=== PATIENT | female | born 1975 | race Caucasian/White ===

== ENCOUNTER → 2024-08-31 09:16 | Outpatient (REF) | payer OTHER, SELFPAY | LOC: HWRAD 09:16 | PROVIDERS: ATTENDING PHYSICIAN Family Medicine | DX: T17.308A Unspecified foreign body in larynx causing other injury, initial encounter (principal) | CPT/HCPCS: 76536 ==

== ENCOUNTER 2025-03-13 10:47 | Emergency (ER) | payer OTHER, SELFPAY ==
[2025-03-13] VITALS (7 sets, daily range): BP systolic 114–143; BP diastolic 63–86; BMI 23.5
--- NOTE | 2025-03-13 11:09 | ED.GENMED ---
History of Present Illness
General
Chief Complaint: Post Operative Problem(s)
Source: patient
Exam Limitations: none
Time Seen by Provider: 03/13/25 10:58
History of Present Illness
History of Present Illness:
49-year-old female presents complaining of nausea vomiting and fatigue. 2 days ago she had a parathyroidectomy. One of her parathyroid was removed as it was large. Since surgery she was supposed to be taking calcium with Tums. She had been
nauseous since surgery and has been using a scopolamine patch for this however she vomited today. She spoke with her surgeon who advised she go to the nearest ER for evaluation. She does note some chest discomfort as well. She also notes some
numbness into both fingers.
Past History
Past History
ED Past Medical History: Other (breast CA) and Other (seasonal allergies)
ED Past Surgical History: Gynecological (breast CA) and Other (FESS)
Social History
Tobacco: Non-smoker
Alcohol: None
Personal:
Living: with family
Employment: Employed ([employer]
Family History
Family History: Negative Diabetes, Hypertension or CAD
Phy Exam
Physical Exam
Physical Exam:
General: Well-appearing female no acute respiratory distress HEENT normocephalic atraumatic neck is supple
Heart: Regular rate and rhythm
Lungs: Clear no wheeze
Skin: Well-appearing skin surrounding surgical incision of the anterior neck. The incisions covered by Steri-Strips
Extremities: No cyanosis or edema
Abdomen is soft mild diffuse tenderness no guarding or rebound
Course
Orders/Labs/Results
Orders:
Orders
03/13/25 10:53
ECG [Electrocardiogram (*1)] Urgent
Reason for Study: Chest Pain
Other Reason for Exam: palpitations
EKG- Treatment ONCE
03/13/25 11:07
0.9% Sodium Chloride 1000 ml [Nss] 1,000 ml IV BOLUS
Ondansetron Injectable [Zofran] 4 mg IV NOW STA
03/13/25 11:33
Complete Blood Count/With Diff Urgent
Comprehensive Metabolic Panel Urgent
Troponin I Urgent
03/13/25 12:21
Calcium Gluconate 1 gram/100mL [Calcium Gluconate] 1 gram in 100 ml IV ONCE
03/13/25 12:54
Acetaminophen [Tylenol] 650 mg PO NOW STA
03/13/25 13:09
COVID-19 Antigen Urgent
Source: Nasal Swab
Influenza A+B Rapid Molecular Urgent
KIESHA Source: Nasal Swab
Specimen Description:
Abnormal Lab Results
03/13/25
11:33
RBC 4.12 L 10^6/uL
(4.20-5.40)
Hct 36.4 L %
(37.0-47.0)
Absolute Neuts (auto) 7.9 H 10^3/uL
(1.4-6.5)
Absolute Lymphs (auto) 0.9 L 10^3/uL
(1.2-3.4)
Absolute Monos (auto) 0.8 H 10^3/uL
(0.1-0.6)
Neutrophils % 81.5 H %
(42.2-75.2)
Lymphocytes % 9.3 L %
(20.5-51.1)
Potassium 3.4 L mmol/L
(3.5-5.1)
BUN 6 L mg/dl
(7-17)
Glucose 114 H mg/dl
(70-99)
Calcium 7.9 L mg/dl
(8.4-10.2)
Total Protein 5.8 L g/dl
(6.3-8.2)
Albumin 3.4 L g/dl
(3.5-5.0)
03/13/25 11:33
03/13/25 11:33
Vital Signs
Initial and Last Documented VS:
Initial Vital Signs
Temp Pulse Resp BP Pulse Ox
99.5 F 114 16 127/86 98
03/13/25 10:49 03/13/25 10:49 03/13/25 10:49 03/13/25 10:49 03/13/25 10:49
Last Documented Vital Signs
Temp Pulse Resp BP Pulse Ox
99.9 F 100 20 135/66 98
03/13/25 11:57 03/13/25 13:15 03/13/25 13:15 03/13/25 13:00 03/13/25 13:00
MDM/Problems Addressed
Differential Diagnosis Includes:
Patient with vomiting and nausea following parathyroidectomy. She was unable to take her calcium today secondary to the vomiting. Will check labs including chemistry and CBC and troponin given the chest pain. Fluids ordered Zofran ordered
*Critical Care Note
Total Time (30-74mins, 75-104mins- exclusive of procedures): Not Applicable
Update Note
Update Note:
Patient reevaluated given fluids Zofran and calcium as her calcium was 7.9. She is feeling much better. No further vomiting. The paresthesias are resolved. Patient does note thick green nasal discharge. COVID and flu test are negative.
Question possible sinusitis with frontal headache. Will cover with antibiotics. Stable for discharge
ED Attending Note
-
Portions of this chart may have been created with voice recognition software.� Occasional wrong word or��sound alike� substitutions may have occurred due to the inherent limitations of voice recognition software.
Discharge Plan
Departure
Patient Disposition: Home (Routine Discharge)
Date of Disposition: 03/13/25
Time of Disposition: 14:19
Patient with high blood pressure during this ER visit?: No
Discharge Problem:
Hypocalcemia, Acute frontal sinusitis
Prescriptions:
New
ondansetron 4 mg tablet,disintegrating
4 mg PO Q8H PRN (Reason: nausea and vomiting) Qty: 10 0RF
cefdinir 300 mg capsule
300 mg PO BID Qty: 14 0RF
No Action
prednisone 20 MG tablet
40 mg PO DAILY Qty: 6 0RF
Referrals:
Melissa Dupree, DO [Family Provider] -
Activity Restrictions/Additional Instructions:
Resume your calcium tomorrow. Take nausea medicine if needed for nausea. Use antibiotic as directed. Return if worse otherwise follow-up with your surgeon as planned
Discharge Date and Time
Print Language: LATVIAN
[2025-03-13] MEDS: NSS 1000 IV (11:35)
[2025-03-13] MEDS: ZOFRAN 4 MG IV (11:35)
[2025-03-13 11:47] LABS: % Basophils 0.2 % (0-2); % Eosinophils 0.8 % (0-6); % Immature Granulocytes 0.2 % (0-0.5); % Lymphocytes 9.3 % (20.5-51.1); % Neutrophils 81.5 % (42.2-75.2); Absolute Eosinophils 0.1 10^3/uL (0-0.7); Absolute Lymphocytes 0.9 10^3/uL (1.2-3.4); Absolute Monocytes 0.8 10^3/uL (0.1-0.6); Absolute Neutrophils 7.9 10^3/uL (1.4-6.5); Hematocrit 36.4 % (37.0-47.0); Hemoglobin 12.3 g/dL (12.0-16.0); Mean Corp Hgb Conc. 33.8 g/dL (33.0-37.0); Mean Corpuscular Hgb 29.9 pg (27.0-31.0); Mean Corpuscular Volume 88.3 fL (81.0-99.0); Mean Platelet Volume 9.5 fL (7.4-10.4); Nucleated Red Blood Cells % 0 %; Platelet Count 225 10^3/uL (130-400); Red Blood Cell Count 4.12 10^6/uL (4.20-5.40); White Blood Cell Count 9.7 10^3/uL (4.8-10.8)
[2025-03-13 11:59] LABS: ALT (SGPT) 15 U/L (0-35); AST (SGOT) 21 U/L (14-36); Albumin 3.4 g/dl (3.5-5.0); Alkaline Phosphatase 49 U/L (38-126); Blood Urea Nitrogen 6 mg/dl (7-17); Calcium 7.9 mg/dl (8.4-10.2); Carbon Dioxide 29 mmol/L (22-30); Chloride 104 mmol/L (98-107); Estimated Creatinine Clearance 109 ml/min; Glucose 114 mg/dl (70-99); Potassium 3.4 mmol/L (3.5-5.1); Sodium 142 mmol/L (135-145); Total Bilirubin 0.6 mg/dl (0.2-1.3); Total Protein 5.8 g/dl (6.3-8.2); eGFR > 60.00
[2025-03-13 12:10] LABS: Troponin I < 0.012 ng/ml
[2025-03-13] MEDS: TYLENOL 650 MG PO (13:08)
[2025-03-13] MEDS: CALCIUM GLUCONATE 100 IV (13:09)
[2025-03-13 13:43] LABS: COVID-19 Antigen Negative (Negative)
== END 2025-03-13 15:26 | disposition home or self-care (01) ==
LOC: EMR 10:47
PROVIDERS: Physician Assistant; EMERGENCY PHYSICIAN Emergency Medicine; FAMILY PHYSICIAN Family Medicine; OTHER PHYSICIAN Otolaryngology
DX: E83.51 Hypocalcemia (principal); J01.10 Acute frontal sinusitis, unspecified; Z85.3 Personal history of malignant neoplasm of breast
CPT/HCPCS: 99283; 96374; 96375; 96361; 80053; 84484; 85025; 87502; 87811; 93005